=== PATIENT | female | born 2005 | race African-American/Black ===

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

== ENCOUNTER 2024-12-15 10:00 | Outpatient (RCR) | payer MEDICAID, SELFPAY ==
--- NOTE | 2024-12-14 10:06 | HP.PTEVAL ---
Patient's Visit Information Visit Information Visit Information: DIVINA ARMANDO is a 19 year old F referred to Physical Therapy by MARCO Drew with a diagnosis of SPRAIN OF L KNEE/HAMSTRING. Date of Evaluation: 12/13/24 Physical Therapist: Judi Leija PT, Cert MDT Visit Plan Frequency: 3-5 X'S A WK Duration: 1 Week Plan: MODALITIES NEEDED TO DECREASE L KNEE PAIN AND INFLAMMATION. L LE ROM, STRETCHING AND STRENGTHENING OPEN AND CLOSED CHAIN. HEP INSTRUCTION. HELP WITH TRANSFER OF CARE TO FACILITY NEAR [facility] NEEDED. 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. Present symptoms: L KNEE PAIN IN THE FRONT BUT MOSTLY ON THE OUTSIDE AND IN THE BACK. Present since: 11/19/24 Pain Scale: WORST 6/10, LEAST 0/10 Currently: 10 Is it getting better, worse or staying the same: STAYING THE SAME Commenced as a result of: TWISTED GETTING UP FROM A FULL SQUAT WHILE CLEANING AND L KNEE BUCKLED AND POPPED. Symptoms at onset: PAIN, BRUISING AND SWELLING RIGHT AWAY. Worse: BEARING WEIGHT ON IT, BENDING L KNEE, FULLY STRAIGHTENING KNEE, GOING UP STEPS. PUTTING SHOE AND SOCK ON IN STANDING. Better: ICE, ALEVE, ADVIL Disturbed sleep: NO Previous history/Previous treatment: UNREMARKABLE Treatment this episode: STEROID DOSEPAK PRESCRIBED AND PATIENT PLANS TO START IT TODAY. HINGE BRACE FROM ED AT [employer] AT TIME OF INJURY. Gait: LIMPING. NOT USING ANY AD'S. 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 Imaging: X-RAY IN ED - STATES SHE WAS TOLD THERE WAS TOO MUCH SWELLING TO SEE ANYTHING. HAD ANOTHER X-RAY TODAY. PATIENT REPORTS THE DOCTOR SAID THERE IS SOME SWELLING BUT NO FX'S. PMH/Recent major surgery: UNREMARKABLE. OTHER: STATES LAST NIGHT SHE WAS KNEELING DOWN TO GREET HER PETS AND IT WAS THE WORST PAIN SHE HAS HAD SINCE THE INJURY AND THE PAIN WAS ALL IN THE BACK OF HER KNEE WHILE KNEELING. PATIENT REPORTS NO ONE HAS GIVEN HER ANY EXERCISES AND SHE HAS NOT TRIED ANY EX'S ON HER OWN. Objective Objective: THIS PATIENT AMBULATES INDEP'LY INTO PT LIMPING ON HER L LE WITHOUT ANY AD'S. SHE IS WALKING ON A BENT L KNEE. SHE IS NOT WEARING HER KNEE BRACE. Sensory deficit: LIGHT TOUCH SENSATION IS GROSSLY INTACT. THERE IS MILD SWELLING IN THE POSTERIOR AND LATERAL L KNEE REGIONS. ROM deficit: L KNEE ROM IN SUPINE IS 45-0-115. SHE REPORTS NOT BEING ABLE TO GET HER LEG EXTENDED OUT STRAIGHT SINCE THE INJURY. Motor deficit: STRAIN GUAGE STRENGTH TESTING MEASURED ON HIGH IN PEAK FORCE POUNDS: HIP FLEX: L 4.5, R 20.1 HIP EXT: L 5.3, R 22.0 HIP ABD: L 5.0, R 17.0 KNEE EXT: L 4.8, R 43.6 KNEE FLEX: L 9.1, R 5.4 Core strength: FAIR Palpation: TENDERNESS WITH PALPATION OF L POSTERIOR AND LATERAL KNEE REGIONS THROUGHOUT. PATIENT DENIES TENDERNESS MEDIALLY. OTHER: SPECIAL TESTING. PATIENT IS TOO GUARDED TO GET ACCURATE RESULTS OF JAMEY AND RAMYA TESTS. VALGUS TESTING IS NEGATIVE AND VARUS TESTING IS POSITIVE. ANTERIOR AND POSTERIOR DRAWER TESTS APPEAR NEGATIVE. SHE IS UNABLE TO SQUAT. TREATMENT: PATIENT WAS SEEN FOR INSTRUCTION IN SEATED HAMSTRING STRETCHING WITH HOME INSTRUCTION FOR 5 REPS X 15 SECS, 5-6 TIMES A DAY. AFTER SEATED HS STRETCHING IN CLINIC PATIENT WAS ABLE TO FULLY EXTEND KNEE AND REPORTED L KNEE FEELING MORE FLUID WALKING OUT. MUCH IMPROVED GAIT AND DECREASED PAIN REPORTED UPON DEPARTURE. INSTRUCTED PATIENT TO WEAR KNEE BRACE WHEN UP AND ABOUT UNTIL NEXT APPOINTMENT. Balance/Special Test Scores Lower Extremity Functional Score: 50 Goals Goal 1:: PATIENT WILL BE INDEP WITH A HEP FOR RETURN TO SCHOOL NEXT WEEK. Goal Time Frame: 1 Week Goal 2:: INCREASE L KNEE ROM TO EASE ADL'S. Goal Time Frame: 1 Week Goal 3:: INCREASE L KNEE FUNCTIONAL STRENGTH TO IMPROVE GAIT AND ADL'S. Goal Time Frame: 1 Week Goal 4:: DECREASE C/O L KNEE PAIN BY AT LEAST 25% Goal Time Frame: 1 Week Rehabilitation Potential Physical Therapy Diagnosis: L KNEE PAIN, EDEMA, STIFFNESS AND WEAKNESS LIMITING GAIT AND ADL'S. Rehabilitation Potential: Good Anticipated Interventions Patient/Client Instruction: Educate patient on: Condition, Plan of Care and Risk Factors For the Purpose of:: To improve self management Therapeutic Exercise to Include: Strength training, Flexibilty training, Gait and locomotor training and Neuromotor development For the Purpose of:: To decrease pain, To decrease swelling/inflammation, To improve nutrient delivery to tissue, To improve muscle performance and motor function, To increase tolerance to activity/condition/position, To improve ability of physical actions for home/community/work/leisure, To improve gait and locomotor functions, To improve health of tissue, To decrease soft tissue restriction, To increase flexibility/ROM, To improve safety with gait and To improve self management Manual Therapy Techniques to Include: Mobilization For the Purpose of:: To decrease soft tissue restriction and To increase flexibility/ROM Cryotherapy (ice pack, ice massage): Yes For the Purpose of:: To decrease pain and To decrease swelling/inflammation Text: Thank you for the opportunity to evaluate your patient. For Medicare and Medicare HMO plans, please review the plan of care and approve it. It will need to be FAXED BACK to us at [phone] for Medicare purposes. For Medicare only, by signing this I certify the plan of care. Please let me know if there are questions or concerns regarding this plan of care. Physician Signature: Date:
--- NOTE | 2024-12-15 11:34 | HP.PTDCSUM ---
Discharge Summary D/C summary: It has been my pleasure to treat DIVINA ARMANDO referred by Mimi Alas NP-C, with the diagnosis of SPRAIN OF L KNEE/HAMSTRING for a total of 3 visit(s). Discharge Date: 12/15/24 Please see the following information for a summary of their discharge status. Subjective Subjective: Pt. reports overall doing okay today. She reports having some throbbing pain, but not severe. Pt. reports most of her pain at her posterior lateral knee. Pt. has tried doing some exercises with decent tolerance. Pain L knee: Pain Intensity (Out of 10): 3 Objective Objective/Function: Pt. was able to achieve full knee extension today, but was sore getting there. She has intermittent issues, mostly with straightening her leg out. She going back to school this weekend. I want her to work on a bike for the next 2 weeks with focus on ROM, HS stretching, quad stretching and SLR. At 2 weeks if doing well I want her to continue with bike but, can add light gym exercise. At 4 weeks if doing well she can start to progress resistances. If not feeling better she is to call physician to determine best course of action. Goals Goal 1:: PATIENT WILL BE INDEP WITH A HEP FOR RETURN TO SCHOOL NEXT WEEK. Goal Progress: Goal Met Goal 2:: INCREASE L KNEE ROM TO EASE ADL'S. Goal Progress: Goal Met Goal 3:: INCREASE L KNEE FUNCTIONAL STRENGTH TO IMPROVE GAIT AND ADL'S. Goal Progress: Progressing Goal 4:: DECREASE C/O L KNEE PAIN BY AT LEAST 25% Goal Progress: Progressing Plan Plan: Pt. given HEP for progressive strengthening and ROM. Pt is going back to school and will be completing on her own at this point in time. D/C Information Discharge Comments: Pt. is going back to school at this point in time. She was given HEP to continue to work on her ROM and progressive strengthening. If not getting better she is to follow back up with physician. d/c sentence: If there are questions or concerns regarding this patient's physical therapy, please feel free to call me at [phone]. Thank you for the referral of this patient. Sincerely, Dillan Amezquita Sipos, DPT Balance/Gait/Functional tests Balance/Special Test Scores Lower Extremity Functional Score: 50
== END 2024-12-15 19:00 | disposition home or self-care (01) ==
LOC: PT 10:00
PROVIDERS: PCP Pediatrics; Referring Provider Nurse Practitioner Family; Visit Provider Nurse Practitioner Family
DX: S86.912D Strain of unspecified muscle(s) and tendon(s) at lower leg level, left leg, subsequent encounter (principal); S76.312D Strain of muscle, fascia and tendon of the posterior muscle group at thigh level, left thigh, subsequent encounter
CPT/HCPCS: 97110; 97162; 97530